=== PATIENT | male | born 1955 | race Caucasian/White ===

== ENCOUNTER 2017-09-23 08:37 | Day surgery (SDC) | payer OTHER ==
[~2017-09-23] VITALS: Ht 180.3 cm; Wt 89.9 kg
[~2017-09-23 08:37] MED LIST: CIPR500 PO; IBUP600 PO; ONDA4 PO; OXYACE5T PO; TAMS.4ER PO
== END 2017-09-23 10:40 | disposition home or self-care (01) ==
LOC: ORSCSDS 08:37
PROVIDERS: Internal Medicine Gastroenterology
PROC: 0DJD8ZZ Inspection of Lower Intestinal Tract, Via Natural or Artificial Opening Endoscopic (ICD-10-PCS; principal; 2017-09-23 09:45)
DX: Z12.11 Encounter for screening for malignant neoplasm of colon (principal); E78.5 Hyperlipidemia, unspecified